=== PATIENT | male | born 1970 | race African-American/Black ===

== ENCOUNTER 2020-03-21 05:31 | Observation (INO) | payer MEDICARE, OTHER ==
[~2020-03-21] VITALS: Ht 170.2 cm; Wt 103.5 kg
[2020-03-21] VITALS (13 sets, daily range): BP systolic 118–147; BP diastolic 83–99
[~2020-03-21 05:31] MED LIST: BUPROPION XL300 MG ORAL
[2020-03-21] MEDS ORDERED: ATROVENT HFA12.9 GM IH (06:37)
[2020-03-21] MEDS ORDERED: NASAL SPRAY30 M4 NS (06:37)
[2020-03-21] MEDS ORDERED: ceFAZolin sod 2 GM in NS 55 ML IVPB ONE (07:00)
[2020-03-21] MEDS ORDERED: Succinylcholine 20mg/ml 10ml vial ONE (07:02)
[2020-03-21] MEDS ORDERED: Rocuronium Bromide 50mg/5ml Inj IV ONE (07:02)
[2020-03-21] MEDS ORDERED: Bacitracin Oint 15gm Tube TOPIC ONE (07:09)
[2020-03-21] MEDS ORDERED: Midazolam 2mg/2ml Inj ONE (07:09)
[2020-03-21] MEDS ORDERED: Lidocaine 1% 10mg/ml/Epi 0.005mg/ml 30ml vial INJ ONE (07:09)
[2020-03-21] MEDS ORDERED: Muri-Lube ONE (07:09)
[2020-03-21] MEDS ORDERED: Dyna-Hex 2% Top Sol 2oz TOPIC ONE (07:09)
[2020-03-21] MEDS ORDERED: Bupivacaine 0.25% Inj 30ml INJ ONE (07:09)
[2020-03-21] MEDS ORDERED: fentaNYL 100 mcg/2 mL IV ONE (07:09)
[2020-03-21] MEDS ORDERED: Lidocaine 1% MPF 10mg/ml 5ml ONE (07:11)
[2020-03-21] MEDS ORDERED: NS Irrig 1000ml IRRIG ONE ×2 (07:19→07:44)
[2020-03-21] MEDS ORDERED: Labetalol 5mg/ml 20ml vial IV ONE (07:30)
[2020-03-21] MEDS ORDERED: LR 1000ml ONE (07:30)
[2020-03-21] MEDS ORDERED: Neostigmine 1mg/ml 10ml Inj ONE (07:30)
[2020-03-21] MEDS ORDERED: Sterile Water Irrig 1000ml IRRIG ONE (07:30)
--- NOTE | 2020-03-21 07:38 | Pre-Procedure Note/Attestation ---
Pre-Procedure Note/Attestation Complete Prior to Procedure Planned Procedure: bilateral Procedure Narrative: bilateral mastectomy and nipple areola reconstruction Indications for Procedure Pre-Operative Diagnosis: gender dysphoria Attestation I attest that I discussed the nature of the procedure; its benefits; risks and complications; and alternatives (and the risks and benefits of such a lternatives), prior to the procedure, with the patient (or the patient's legal accounts receivable representative). I attest that, if there was a reasonable possibility of needing a blood transfusion, the patient (or the patient's legal accounts receivable representative) was given the [facility] standardized written summary, pursuant to the Jay García Blood Safety Act ([place] Health and Safety Code # 1645, as amended). I attest that I re-evaluated the patient just prior to the surgery and that there has been no change in the patient's H&P, except as documented below: Chetan Basilio MD Mar 21, 2020 07:38
[2020-03-21] MEDS ORDERED: Morphine Sulfate 10mg/ml Inj ONE (08:11)
[2020-03-21] MEDS ORDERED: Sodium Chloride 10ml vial INJ ONE (08:12)
--- NOTE | 2020-03-21 08:21 | Anethesia Preoperative Eval ---
Anesthesia Pre-op PMH/ROS General Date of Evaluation: Mar 21, 2020 Time of Evaluation: 07:20 Anesthesiologist: Chelsy ASA Score: ASA 2 Mallampati Score Class I : Soft palate, uvula, fauces, pillars visible Class II: Soft palate, uvula, fauces visible Class III: Soft palate, base of uvula visible Class IV: Only hard plate visible Mallampati Classification: Class II Surgeon: Praful Diagnosis: Gender dysphoria Surgical Procedure: Bilateral mastectomy Anesthesia History: none Social History: smoking - h/o Allergies: Coded Allergies: No Known Allergies (Unverified , 03/21/20) Patient NPO?: Yes Past Medical History Cardiovascular: Reports: HTN - borderline; Denies: CAD, NV, valve dz, arrhythmia, other Pulmonary: Reports: asthma - mild Gastrointestinal/Genitourinary: Reports: GERD; Denies: CRI, ESRD, other Neurologic/Psychiatric: Reports: depression/anxiety; Denies: dementia, CVA, TIA, other Endocrine: Reports: DM - borderline preop fasting BS 118; Denies: hypothyroidism, steroids, other HEENT: Denies: cataract (L), cataract (R), glaucoma, [place] (L), [place] (R), other Hematology/Immune: Denies: anemia, DVT, bleeding disorder, other Musculoskeletal/Integumentary: Denies: OA, RA, DJD, DDD, edema, other Other: obesity PMH Narrative: as above PSxH Narrative: None Anesthesia Pre-op Phys. Exam Physician Exam Last Vital Signs Date Time Temp Pulse Resp B/P (MAP) Pulse Ox O2 Delivery O2 Flow Rate FiO2 03/21/20 06:06 Room Air 03/21/20 06:02 97.6 61 18 139/88 99 Constitutional: NAD Neurologic: CN 2-12 intact Cardiovascular: RRR Respiratory: CTA Gastrointestinal: other - obesity Airway Exam Mallampati Score: Class II MO: full Neck: flexible ROM: full Teeth: intact Dentures: no upper, no lower Anesthesia Pre-op A/P Labs Chemistry Test 03/21/20 07:26 POC Whole Blood Glucose 118 MG/DL (74-106) H Urine Test Test 03/21/20 05:45 Urine HCG, Qualitative Negative (NEGATIVE) Studies Pre-op Studies: EKG - NSR Risk Assessment & Plan Assessment: ASA 2 Plan: GA with ETT Status Change Before Surgery: No Pre-Antibiotics Drug: Ancef 2gr Given Within 1 Hr of Incision: Yes Time Given: 07:56 Balta Valentino MD Mar 21, 2020 08:21
[2020-03-21] MEDS ORDERED: Ketorolac 30mg Inj IV PRN (08:30)
[2020-03-21] MEDS ORDERED: DiphenhydrAMINE 50mg/ml Inj IVP PRN (08:30)
[2020-03-21] MEDS ORDERED: Hydromorphone 0.5mg/0.5ml inj IVP PRN (08:30)
[2020-03-21] MEDS ORDERED: Acetaminophen (Non formulary) 100 ML IV ONE (08:30)
[2020-03-21] MEDS ORDERED: LR 1000ml 1,000 ML IVLG SCH (08:30)
[2020-03-21] MEDS ORDERED: Midazolam 2mg/2ml Inj IVP PRN (08:30)
[2020-03-21] MEDS ORDERED: Glycopyrrolate 0.2mg/ml 1ml Vial ONE (09:32)
[2020-03-21] MEDS ORDERED: Ketorolac 30mg Inj ONE (09:33)
--- NOTE | 2020-03-21 11:32 | Operative Note - PDOC ---
Operative Note Operative Note Date of Operation/Procedure: Mar 21, 2020 Pre-op Diagnosis: gender dysphoria Procedure: bilateral mastectomy and nipple areola reconstruction Post-op Diagnosis: same as pre-op Surgeon: Praful Anesthesiologist: Chelsy Anesthesia: general Specimen: yes Complications: none Condition: stable Estimated Blood Loss: volume - 50 cc Drains: KATHRIN - x2 Implant(s) used?: No Chetan Basilio MD Mar 21, 2020 11:32
--- NOTE | 2020-03-21 11:38 | Discharge Instructions ---
Discharge Instructions Discharge Instructions Follow up with: Dr. Basilio 03/27/20 Diet: regular Resume Normal Activity?: Yes Activity: ambulate For Surgical Patients May shower: No - sponge bathe only For Congestive Heart Failure Reminder Report to your physician any weight gain of 5 pounds or more in one week. Chetan Basilio MD Mar 21, 2020 11:38
--- NOTE | 2020-03-21 11:38 | Immediate Post-Op Evaluation ---
Immediate Post-Op Evalulation Immediate Post-Op Evalulation Procedure: Bilateral mastectomy with nipple reconstructiion Date of Evaluation: Mar 21, 2020 Time of Evaluation: 11:37 IV Fluids: 1200 Blood Products: none Estimated Blood Loss: 100 Urinary Output: n/a Blood Pressure Systolic: 126 Blood Pressure Diastolic: 95 Pulse Rate: 76 Respiratory Rate: 20 O2 Sat by Pulse Oximetry: 99 Temperature (Fahrenheit): 97.8 Pain Score (1-10): 1 Nausea: No Vomiting: No Complications none Patient Status: reacts, patent, extubated, none Balta Valentino MD Mar 21, 2020 11:38
[2020-03-21] MEDS ORDERED: HYDROcodone/Acetamin 5/325 tab ORAL PRN (11:45)
[2020-03-21] MEDS ORDERED: HYDROmorphone 1mg/ml Carpuject SUBQ PRN (11:45)
[2020-03-21] MEDS ORDERED: D5 1/2NS 1,000 ML IV SCH (12:00)
--- NOTE | 2020-03-21 12:30 | Operative Note - Dictated ---
DATE OF OPERATION: 03/21/2020 PREOPERATIVE DIAGNOSIS: Gender dysphoria. POSTOPERATIVE DIAGNOSIS: Gender dysphoria. PROCEDURE: 1. Bilateral mastectomy. 2. Bilateral nipple-areola reconstruction utilizing full-thickness grafts (each graft 2.5 x 2.5 cm). SURGEON: Chetan Basilio MD. ANESTHESIOLOGIST: Balta Valentino MD. ANESTHESIA: General. ESTIMATED BLOOD LOSS: 50 mL. SPECIMENS: 1. Right breast. 2. Left breast. DRAINS: A 15-Iraqi Juan x2. COMPLICATIONS: None. CONDITION: To recovery room stable. INDICATION FOR PROCEDURE: This is a very pleasant 49-year-old trans male who desires top surgery as part of his transition. He has the appropriate letter of recommendation from his therapist and meets all WPATH criteria for top surgery. I have discussed the risks, benefits, and alternatives to the procedure with him including, but not limited to, bleeding, infection, scarring, nerve injury, asymmetry, contour deformity, hematoma, seroma, loss of nipple sensation, loss of nipple graft, and need for additional surgery including revisions. I discussed the orientation of the incisions and the unpredictable nature of scarring. No guarantees were made regarding the outcome. All of his questions have been answered to the best of my ability. He verbalized understanding with everything that we discussed and wishes to proceed. DESCRIPTION OF PROCEDURE: The patient was identified in the preoperative holding area and marked in the standing position. He was then brought to the operating room where he was placed in the supine position on the operating room table with his arms extended on arm boards. All bony prominences were adequately padded. Sequential compression devices were placed and intravenous antibiotics were administered. After induction of anesthesia, the patient's chest was prepped and draped in sterile fashion. Starting on the left breast first, a hopi measuring 2.5 cm in diameter was drawn out centered around the nipple. Next, the subdermal plane within the areolar marking was infiltrated with 4 mL of 1% lidocaine with epinephrine. I then used a 15-blade scalpel to incise the areolar marking and proceeded to harvest a full-thickness nipple areolar graft. The graft was subsequently defatted using curved iris scissors, wrapped in wet gauze, and placed on the back table. I then made the inframammary fold incision using a 10-blade scalpel. Dissection proceeded down to the level of the pectoralis major fascia. I then made the superior breast incision using a 10- blade scalpel and dissected down to the level of Young's fascia. Skin Rakes were used to retract the skin and a plane of dissection was created superiorly between the subcutaneous tissues and breast parenchyma. Afterwards the breast was then elevated off of the pectoralis major fascia proceeding from a medial to lateral direction. The specimen was then passed off the table. Hemostasis was achieved and the wound was irrigated with saline, 4 mL of Tisseel and 10 mL of FloSeal was placed within the wound cavity. A 15-Iraqi Juan drain was then placed within the wound and brought out through a separate stab incision and secured using 2-0 silk suture. Skin ramya were then used to temporarily reapproximate the skin. I then shifted my attention to the contralateral side of the chest where the identical procedure was performed. The patient was then sat up on the operating room table to assess for symmetry and it appeared that he had very reasonable symmetry between the two sides of his chest. I then used a marking pen to draw the proposed location of the new nipple areola complex on each side of the chest. These markings were confirmed with direct measurements. The patient was then placed back in the supine position. On each side of the chest, the skin ramya were removed and wound closure was performed using interrupted 0 Vicryl suture for the Young's fascia layer followed by interrupted 3-0 PDS suture for the deep dermal layer and then a running 3-0 Monocryl subcuticular suture to reapproximate the skin. I then resumed with the nipple areola reconstruction portion of the procedure. Starting on the left chest first, the marcelle-areolar marking was incised using a 15-blade scalpel. The intervening skin within the marking was then de-epithelialized. I then brought out the full-thickness nipple areola graft and proceeded to inset it into the de-epithelialized area using a running 5-0 fast-absorbing suture. Several 2-0 silk suture ties were placed around the periphery of the graft. The skin graft bolster was fashioned and then secured into place directly on top of the nipple areolar graft using the 2-0 silk sutures ties. Next, I shifted my attention to the contralateral side of the chest where the identical procedure was performed. Afterwards 10 mL of 0.25% plain Marcaine were then injected into each surgical incision for total of 20 mL. Steri-Strips were placed on top of the surgical incisions followed by sterile dressings and the patient was then placed into a compressive chest wrap. He tolerated the procedure well and was sent to the recovery room in stable condition. All instrument, sharp, and sponge counts were correct at the conclusion of the case. Chetan Basilio M.D. DR: Bridgette JOB#: [id number] CC: KRISTOPHER
--- NOTE | 2020-03-21 13:00 | NUR ---
NURSE NOTES: Pt came up to unit via hospital bed in stable condition and w/all belongings accounted for. Pt A&Ox4; VSS; on 2L NC; IV site intact; SCDs on b/l; KATHRIN drains intact/to bulb suction; and pt denies pain at this time. Will contact tax map technician regarding home meds. Bed in lowest position and call light within reach. Will continue to monitor.
--- NOTE | 2020-03-21 13:14 | History and Physical ---
History of Present Illness General Date patient seen: Mar 21, 2020 Present Illness HPI Mr. Scott is a 49M with PMH of HTN, HLD, Depression, GABI and gender dysphoria who presents today as a post-op for bilateral mastectomies. Patient underwent his mastectomies today for gender dysphoria by Dr. Basilio. Surgery went without complications, however, given Dr. Basilio's recent findings of his GABI that he was unaware of he would like to have patient monitored overnight. Patient flew in from [place] to have procedure done and currently staying at [facility] w ith mother. He reports discontinuing several medications for his BP, HLD, and depression on his own as he states, "I feel better off them." His only medication he continues is Wellbutrin. He was fitted for a CPAP mask by his sleep doctor, however, he returned the mask as he said " it didn't work, too much pressure is blown." He feels he does not need CPAP despite noting unrefre shing sleep and daytime tiredness. Patient otherwise has been well. PMH: HLD, HTN, Depression, Gender dysphoria, GABI PSH: bilateral mastectomies (03/20/2020) Fx: mother with sarcoidosis Meds: Wllbutrin Soc: former 2pck/wk smoker until 3 weeks go, denies drinking or drug use Allergies: Coded Allergies: No Known Allergies (Unverified , 03/21/20) COVID-19 Screening Contact w/high risk pt: No Experienced COVID-19 symptoms?: No Medication History Scheduled Bupropion Hcl* (Wellbutrin*), 300 MG ORAL DAILY, (Reported) Ipratropium [place] (Atrovent Hfa), 12.9 GM IH NEEDED, (Reported) Phenylephrine Hcl (Nasal [place]), 30 ML NS NEEDED, (Reported) Patient History Healthcare decision maker N Resuscitation status Advanced Directive on File Review of Systems Constitutional: Denies: no symptoms, see HPI, chills, sweats, fever, malaise, weakness, other Eye: Denies: no symptoms, see HPI, eye pain, blurred vision, tearing, double vision, nose pain, nose congestion, acuity changes, discharge, other ENT: Denies: no symptoms, see HPI, ear pain, ear discharge, nose pain, nose congestion, throat pain, throat swelling, mouth pain, hearing loss, nasal discharge, other Respiratory: Denies: no symptoms, see HPI, cough, orthopnea, shortness of breath, stridor, wheezing, ORANTES, sputum, other Cardiovascular: Denies: no symptoms, see HPI, chest pain, edema, palpitations, syncope, PND, other Gastrointestinal: Denies: no symptoms, see HPI, abdominal pain, constipation, diarrhea, nausea, vomiting, melena, hematemesis, other Genitourinary: Denies: no symptoms, see HPI, discharge, dysuria, frequency, hematuria, pain, retention, incontinence, urgency, vag bleed/dc, other Musculoskeletal: Denies: no symptoms, see HPI, back pain, gout, joint pain, joint swelling, muscle pain, muscle stiffness, other Skin: Denies: no symptoms, see HPI, rash, change in color, change in hair/nails, dryness, lesions, other Psychiatric: Denies: no symptoms, see HPI, prior hx, anxiety, depressed feelings, emotional problems, SI, HI, hallucinations, other Neurological: Denies: no symptoms, see HPI, headache, numbness, paresthesia, seizure, tingling, tremors, focal weakness, syncope, dizziness, other Endocrine: Denies: no symptoms, see HPI, excessive sweating, flushing, intolera nce to temperature, increased thirst, increased urine, unexplained weight loss, other Hematologic/Lymphatic: Denies: no symptoms, see HPI, anemia, blood clots, easy bleeding, easy bruising, swollen glands, diathesis, other Physical Exam General Appearance: no apparent distress, alert, obese HEENT: normocephalic, atraumatic Neck: normal alignment, supple Respiratory/Chest: lungs clear, normal breath sounds, no respiratory distress Breasts: other - bilateral surgical bandages over breast with KATHRIN drains Cardiovascular/Chest: normal rate, regular rhythm, no JVD Abdomen: normal bowel sounds, non tender, soft Extremities: normal range of motion, non-tender Neurologic: tool machinist II-XII grossly normal, alert, oriented x 3 Last 24 Hour Vital Signs Date Time Temp Pulse Resp B/P (MAP) Pulse Ox O2 Delivery O2 Flow Rate FiO2 03/21/20 12:45 97.3 79 20 146/95 (112) 98 03/21/20 12:30 98.4 72 17 134/94 100 Nasal Cannula 3 03/21/20 12:15 77 14 136/96 100 Nasal Cannula 3 03/21/20 12:00 74 16 147/95 100 Simple Mask 6 03/21/20 11:48 79 16 142/93 100 Simple Mask 6 03/21/20 11:38 80 17 134/99 100 Simple Mask 6 03/21/20 11:38 76 20 99 03/21/20 11:33 75 16 126/95 100 Simple Mask 6 03/21/20 11:28 97.6 76 18 118/91 99 Simple Mask 6 03/21/20 06:06 Room Air 03/21/20 06:02 97.6 61 18 139/88 99 Room Air Intake and Output 03/20/20 03/21/20 19:00 07:00 # Voids 1 Laboratory Tests Test 03/21/20 05:45 03/21/20 07:26 Urine HCG, Qualitative Negative (NEGATIVE) POC Whole Blood Glucose 118 MG/DL (74-106) H Height (Feet): 5 Height (Inches): 7.00 Weight (Pounds): 225 Medications Current Medications Medications (Trade) Dose Ordered Sig/Laury Route PRN Reason Start Time Stop Time Status Last Admin Dose Admin Acetaminophen/ Hydrocodone Bitart (Orrick 5/325) 1 tab Q4H PRN ORAL Moderate Pain (Pain Scale 4-6) 03/21/20 11:45 03/28/20 11:44 Dextrose/Sodium Chloride 1,000 ml @ 125 mls/hr Q8H IV 03/21/20 12:00 04/20/20 11:59 Docusate Sodium (Colace) 100 mg TWICE A DAY ORAL 03/21/20 18:00 04/20/20 17:59 Hydromorphone HCl (Dilaudid) 1 mg Q1H PRN SUBQ Severe Pain (Pain Scale 7-10) 03/21/20 11:45 03/28/20 11:44 Ondansetron HCl (Zofran) 4 mg Q6H PRN IVP Nausea & Vomiting 03/21/20 11:45 04/20/20 11:44 Assessment/Plan Assessment/Plan: Mr. Scott is a 49M with PMH of HTN, GABI, HLD who presents as a post-op for bilateral mastectomies A: # S/p Bilateral Mastectomies 2/2 Gender Dysphoria # GABI - uncontrolled # Essential HTN # HLD # Obesity Class 2 # Depression P: - hemodynamically stable - sat well on 2L NC; keep O2 > 92% - post-op wound care, daily dressing changes - discussed with nurse to wean off O2 as necessary - ISS - duonebs prn - zofran prn - post- op pain well controlled - prn pain meds - IVF - regular diet - encouraged ambulation as dvt ppx - lengthy discussion about importance to use CPAP for his GABI, however, patient very reluctant to use it as he does not believe it helps. I order CPAP for him tonight, although he told me he will most likely not use it. - hydralazine 10 mg q4h prn, SBP > 160 - continue home Wellbutrin CODE: full GI: none Fluids: 1/2 NS Diet: Full DVT ppx: none, encourage ambulation In addition to the usual care above I spent additional time reviewing records in the EMR and paper charts including physician documentation, nursing documentation, lab results, imaging and clinical documentation. Total time included was 25 min. Advanced care planning 15 minutes was spent which included discussion of both acute and chronic medical illnesses, code status, goals of care and advanced directives and POLST. Time spent on this encounter was 55 minutes which included 35 minutes of counseling and care coordination. I discussed with the nurse at bedside. Time of note may not reflect time patient was seen. Davey Villatoro D.O Mar 21, 2020 13:14
[2020-03-21] MEDS ORDERED: Neo-Synephrine 0.5% Nasal Soln NASAL ONE (14:15)
[2020-03-21] MEDS ORDERED: HydrALAZINE 10mg Tab ORAL PRN (14:15)
[2020-03-21] MEDS ORDERED: Acetaminophen 650 MG SUPP RECTAL PRN ×2 (14:15)
[2020-03-21] MEDS ORDERED: Mylanta II UD 30ml ORAL PRN (14:15)
[2020-03-21] MEDS ORDERED: Miralax 17gm pkt ORAL PRN (14:15)
[2020-03-21] MEDS ORDERED: Albuterol ud Inhalation HHN PRN (14:15)
[2020-03-21] MEDS ORDERED: Phenylephrine 0.25% Nasal Spray NASAL ONE (14:45)
--- NOTE | 2020-03-21 15:16 | General Progress Note ---
Advance Care Planning Advance Care Planning Advance Care Planning [facility] An independent Hospitalist group, where every patient is our [facility] Internal Medicine Hospitalist Advanced Care Planning Note Please contact us at Date of Discussion: A [id number] discussion with the patient regarding the patient's advanced care planning took place during this hospitalization on the above date. The discussion included the explanation and discussion of advance directives and associated forms/documents, as well as the patient's current code status. We also discussed at length the patient's medical conditions (both acute and chroni c), general prognosis, treatment options, and goals of care. The following summarizes the discussion: Advance Care Planning/Goals of Care: - Will attempt to fill out an AD and/or POLST with the patient prior to discharge, if not already completed - Continue current evaluation and management of any acute and chronic medical issues - Will continue to support the patient/family - Will continue to discuss both short- and long-term goals of care DPOA-HC/Surrogate Decision Maker: None currently appointed Code Status: Full Code Advanced Care Planning Forms/Documents Completed: Deferred until later encounter/visit A total of 15 minutes was spent on this discussion, including counseling, answering questions, and completing, if any, pertinent advanced care planning forms/documents. Time of note may not reflect time of encounter. Davey Villatoro D.O Mar 21, 2020 15:16
[2020-03-21] MEDS: Docusate 100mg cap ORAL SCH (18:33)
--- NOTE | 2020-03-21 19:30 | NUR ---
NURSE HAND-OFF: Important Events on Shift: Pt on IVF for 8 hours; pt ambulated to bathroom w/o incident and voided & had small BM; pt had two episodes of emesis but presently denies nausea; states it may be due to drinking too much water. No s/s of respiratory distress; pt refused CPAP for this PM and requests to sleep w/O2 on @2L. Patient Status: Stable Diet: Regular Latest Vital Signs: Temperature 97.9 , Pulse 75 , B/P 136 /83 , Respiratory Rate 20 , O2 SAT 98 , Nasal Cannula, O2 Flow Rate 3.0 . Latest Gardner Fall Score: 20 Fall Risk: Low Risk Safety Measures: Call light Within Reach, Bed Alarm , Side Rails Side Rails x2, Bed position Low and Locked. Fall Precautions: Report given to EMILY Lee.
--- NOTE | 2020-03-21 19:35 | NUR ---
NURSE NOTES: Received report from pedro avalos. patient is on bed, awake and verbally responsive. a&o x4. ambulatory. iv access on the right hand running d5 1/2 ns @ 125 for 8h. s/p bilateral mastectomy with free nipple graft today. irina drain on the left and right breast. per robbie" vomit x1 and refused cpap". on nasal cannula at 2 lpm. denies any pain or discomfort at the moment. reiterated to call and ask for assistance. call light and light button within easy reach. bed locked and in lowest position. will continue plan of care.
--- NOTE | 2020-03-21 21:57 | NUR ---
NURSE NOTES: patient c/o pain on the right breast 11/22, aching, non- radiating. norco given as ordered. educated to call and ask for assistance to prevent fall or any injury. bed locked and in lowest position. call light and light button within easy reach.
--- NOTE | 2020-03-21 22:00 | NUR ---
NURSE NOTES: offered cpap; Patient refused. "i'm okay. i dont need it". charge nurse made aware
--- NOTE | 2020-03-21 22:30 | NUR ---
NURSE NOTES: Patient c/o nasal dryness. per patient" i take oxymetazoline nasal spray at home". paged dr. cruz awaiting for call back. charge nurse made aware.
--- NOTE | 2020-03-21 22:58 | NUR ---
NURSE NOTES: received a call back from dr. mooney(on-call) with a new order of oxymetazoline bid prn 1 spray each nostril. order noted and carried out. charge nurse made aware.
[2020-03-21] MEDS ORDERED: Oxymetazoline 0.05% Na Spray 30ml NASAL PRN (23:00)
[2020-03-22] VITALS: BP 101/70
[2020-03-22 04:00] VITALS: BP 115/75
[2020-03-22 05:34] LABS: BASOPHILS % (AUTO) 3.3 % (0.0-2.0); EOSINOPHILS % (AUTO) 0.5 % (0.0-3.0); HEMOGLOBIN 14.7 G/DL (14.2-18.0); LYMPHOCYTES % (AUTO) 18.9 % (20.0-45.0); MEAN CORPUSCULAR VOLUME 91 FL (80-99); MONOCYTES % (AUTO) 9.8 % (1.0-10.0); NEUTROPHILS % (AUTO) 67.5 % (45.0-75.0); PLATELET COUNT 224 K/UL (150-450); RED BLOOD COUNT 4.85 M/UL (4.70-6.10); RED CELL DISTRIBUTION WIDTH 12.7 % (11.6-14.8); WHITE BLOOD COUNT 12.5 K/UL (4.8-10.8)
[2020-03-22 05:49] LABS: ANION GAP 2 mmol/L (5-15); BLOOD UREA NITROGEN 11 mg/dL (7-18); CARBON DIOXIDE 31 MMOL/L (21-32); CHLORIDE 102 MMOL/L (98-107); CREATININE 1.2 MG/DL (0.55-1.30); PHOSPHORUS 3.1 MG/DL (2.5-4.9); POTASSIUM 4.9 MMOL/L (3.5-5.1); SODIUM 135 MMOL/L (136-145)
--- NOTE | 2020-03-22 06:40 | NUR ---
NURSE HAND-OFF: Important Events on Shift: KATHRIN DRAIN; PAIN MNGT; CPAP REFUSED; NEW ORDER OF NASAL SPRAY Patient Status: STABLE Diet: REGULAR Pending Orders: Pending Results/Labs: Pending MD notification: Latest Vital Signs: Temperature 98.1 , Pulse 70 , B/P 115 /75 , Respiratory Rate 20 , O2 SAT 99 , Nasal Cannula, O2 Flow Rate 2.0 . Vital Sign Comment: Latest Gardner Fall Score: 20 Fall Risk: Low Risk Safety Measures: Call light Within Reach, Bed Alarm , Side Rails Side Rails x2, Bed position Low and Locked. Fall Precautions: Patient Fall Education Addendum: 03/22/20 at 0719 by Susan Christianson RN HAND-OFF: Report given to pedro oshea.
--- NOTE | 2020-03-22 07:30 | NUR ---
NURSE NOTES: Received report from EMILY Lee. patient a&o x4. ambulatory. Breathing even and unlabored. No acute distress noted. Denies pain at this time. IV intact and patent. Surgical site C/D/I. Noted irina on the left and right breast draining well. Educated pt to use call light for assistance. Bed locked and in lowest position. Will continue to monitor.
[2020-03-22] MEDS ORDERED: Magnesium Oxide 400mg tab ORAL SCH (07:45)
[2020-03-22 08:00] VITALS: BP 128/81
[2020-03-22] MEDS: Docusate 100mg cap ORAL SCH (08:40)
--- NOTE | 2020-03-22 09:10 | Discharge Instructions ---
Discharge Instructions Discharge Instructions Diet: regular Resume Normal Activity?: Yes - increase activitiy level slowly Activity: light activity Special Instructions Follow up with Dr. Basilio on 03/27/2020 as told by patient For Surgical Patients Dressing Care: keep dry and clean For Congestive Heart Failure Reminder Report to your physician any weight gain of 5 pounds or more in one week. Davey Villatoro D.O Mar 22, 2020 09:10
--- NOTE | 2020-03-22 09:33 | NUR ---
CASE MANAGEMENT: REVIEW 49 YEAR OLD MALE DIRECT ADMIT FROM HOME CC: GENDER DYSPHORIA SI: GENDER DYSPHORIA BILATERAL MASTECTOMY AND NIPPLE AREOLA RECONSTRUCTION 03/21 T 97.6 HR 61 RR 18 BP 139/88 SAT 99% ROOM AIR WBC 12.5 NA 135 GLUCOSE 126 IS: ANCEF IV X1 DIPRIVAN IV X1 VERSED IV X1 FENTANYL IV X1 LIDOCAINE INJ X1 PATIENT ADMITTED TO MED/SURG UNIT 03/21/2020 DCP: PATIENT IS FROM HOME
--- NOTE | 2020-03-22 09:46 | Discharge Summary ---
Discharge Summary Hospital Course Date of Admission Mar 21, 2020 at 13:10 Date of Discharge Admitting Diagnosis FRANCES Scott is a 49 year old male who was admitted on Mar 21, 2020 at 13:10 for Gender Dysphoria Hospital Course Mr. Scott is a 49M with PMH of HTN, GABI, HLD who presents as a post-op for bilateral mastectomies by Dr. Basilio on March 21, 2020. Per DrBrooke he was unaware of patient's GABI medical history and therefore wanted patient to be observed overnight. No acute events overnight. Patient refused to use overnight CPAP. Patient tolerating diet. No fevers no chills, no shortness of breath, no pain at the surgical wound sites. Patient ambulating down the singh without any distress or issues. Vitals stable. Patient otherwise cleared for discharge today and will return back to the hotel he is staying with his mother until his follow-up appointment with Dr. Basilio on March 27, 2020. A: # S/p Bilateral Mastectomies 2/2 Gender Dysphoria on March 21, 2020 # GABI - uncontrolled # Essential HTN # HLD # Obesity Class 2 # Depression P: - post-op wound care, daily dressing changes - Continue home meds Wellbutrin, Atrovent as needed - Patient not requiring any pain meds on discharge -Patient will follow up with Dr. Basilio on March 27, 2020 as confirmed appointment per patient Time spent on this encounter was 35 minutes which included 25 minutes of community health counselor ing and care coordination. I discussed with the nurse at bedside. Time of note may not reflect time patient was seen. 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 Basilio 03/27/20 Activity: light activity For Surgical Patients Dressing Care: keep dry and clean October shower: No - sponge bathe only Davey Villatoro D.O Mar 22, 2020 09:46
--- NOTE | 2020-03-22 10:20 | NUR ---
NURSE NOTES: pt in stable condition. Provided discharge instructions, follow up information, after care instructions. Pt verbalized understanding. All belongings were accounted. IV and ID band removed. Pt walked to downstairs with nurse and picked up by mother.
[2020-03-22 10:34] VITALS: BP 122/76
--- NOTE | 2020-03-22 10:34 | 48 Hour Post Anesthesia Eval ---
Post Anesthesia Evaluation Procedure: Bilateral mastectomy with nipple reconstructiion Date of Evaluation: Mar 22, 2020 Time of Evaluation: 10:33 Blood Pressure Systolic: 122 0: 76 Pulse Rate: 72 Respiratory Rate: 20 Temperature (Fahrenheit): 97.6 O2 Sat by Pulse Oximetry: 98 Airway: patent Nausea: No Vomiting: No Pain Intensity: 2 Hydration Status: adequate Cardiopulmonary Status: stable Mental Status/LOC: patient returned to baseline Follow-up Care/Observations: n/a Post-Anesthesia Complications: none Follow-up care needed: ready to discharge Balta Valentino MD Mar 22, 2020 10:34
== END 2020-03-22 10:20 | disposition home or self-care (01) ==
LOC: SUR 05:31 → EDSEX 07:30 → INTOOBSV 13:10 → 3E 13:10
DX: F64.9 Gender identity disorder, unspecified (principal); E78.5 Hyperlipidemia, unspecified; I10 Essential (primary) hypertension; F32.9 Major depressive disorder, single episode, unspecified; G47.33 Obstructive sleep apnea (adult) (pediatric); Z87.891 Personal history of nicotine dependence; E66.9 Obesity, unspecified; Z68.35 Body mass index [BMI] 35.0-35.9, adult
CPT/HCPCS: 19303; 19350; 36415; 80048; 81025; 82962; 83735; 84100; 85025; 94003; G0378 ×2; J0131; J0330; J0690; J1885; J2250; J2270; J2405; J2704; J2710; J3010; J3490; J7120; U0002; 94150